=== PATIENT | female | born 1960 | race Caucasian/White ===

== ENCOUNTER 2018-02-25 15:37 | Inpatient (IN) | payer OTHER ==
--- NOTE | 2018-02-25 16:47 | ED ---
General Adult HPI - General Chief complaint: Neuro Symptoms/Deficit Stated complaint: POSS CVA Time Seen by Provider: 02/25/18 16:46 Source: patient, RN notes reviewed, old records reviewed Mode of arrival: wheelchair Limitations: no limitations - History of Present Illness Initial comments: This is a 37-year-old female to the ER for evaluation she presents today for evaluation rule out stroke. Patient was sent in by neurology Dr. Cagle for evaluation of stroke. Patient has been acting appropriate, has had 2 prior evaluations in the emergency room, coming in the ER for recurrent evaluation of continue binocular diplopia dizziness vertigo and ataxia - Related Data Home Medications Medication Instructions Recorded Confirmed Atenolol/Chlorthalidone 1 tab PO DAILY 02/25/18 02/25/18 [Atenolol-Chlorthalidone 50-25] Atorvastatin [Lipitor] 20 mg PO DAILY 02/25/18 02/25/18 Baclofen 10 mg PO HS 02/25/18 02/25/18 HYDROcodone/APAP 10-325MG [[place] 1 tab PO TID 02/25/18 02/25/18 10-325] Ibuprofen 600 mg PO TID 02/25/18 02/25/18 Levothyroxine Sodium 125 mcg PO DAILY 02/25/18 02/25/18 Loratadine [Claritin] 10 mg PO DAILY 02/25/18 02/25/18 Omeprazole 40 mg PO DAILY 02/25/18 02/25/18 Oxybutynin ER [Ditropan Xl] 10 mg PO DAILY 02/25/18 02/25/18 Temazepam [Restoril] 15 mg PO HS PRN 02/25/18 02/25/18 Allergies Allergy/AdvReac Type Severity Reaction Status Date / Time adhesive tape Allergy Unknown Verified 02/25/18 15:57 diflunisal [From Dolobid] Allergy Unknown Verified 02/25/18 15:57 Review of Systems ROS Statement: Those systems with pertinent positive or pertinent negative responses have been documented in the HPI. ROS Other: All systems not noted in ROS Statement are negative. Past Medical History Past Medical History: Fibromyalgia, Hyperlipidemia, Hypertension, Osteoarthritis (OA), Thyroid Disorder Additional Past Medical History / Comment(s): chronic back pain History of Any Multi-Drug Resistant Organisms: None Reported Past Surgical History: Appendectomy, Section, Cholecystectomy, Hernia Repair, Tonsillectomy Past Psychological History: No Psychological Hx Reported Smoking Status: Current every day smoker Past Alcohol Use History: None Reported Past Drug Use History: Marijuana General Exam - General Exam Comments Initial Comments: binocular diplopia Limitations: no limitations General appearance: alert, in no apparent distress Head exam: Present: atraumatic, normocephalic, normal inspection Eye exam: Present: normal appearance, PERRL, EOMI. Absent: scleral icterus, conjunctival injection, periorbital swelling ENT exam: Present: normal exam, mucous membranes moist Neck exam: Present: normal inspection. Absent: tenderness, meningismus, lymphadenopathy Respiratory exam: Present: normal lung sounds bilaterally. Absent: respiratory distress, wheezes, rales, rhonchi, stridor Cardiovascular Exam: Present: regular rate, normal rhythm, normal heart sounds. Absent: systolic murmur, diastolic murmur, rubs, gallop, clicks GI/Abdominal exam: Present: soft, normal bowel sounds. Absent: distended, tenderness, guarding, rebound, rigid Extremities exam: Present: normal inspection, full ROM, normal capillary refill. Absent: tenderness, pedal edema, joint swelling, calf tenderness Back exam: Present: normal inspection Neurological exam: Present: alert, oriented X3, CN II-XII intact Psychiatric exam: Present: normal affect, normal mood Skin exam: Present: warm, dry, intact, normal color. Absent: rash Course Vital Signs 02/25/18 02/25/18 02/25/18 15:52 17:04 18:10 Temperature 98.1 F Pulse Rate 62 63 58 L Respiratory 20 16 16 Rate Blood Pressure 107/72 134/68 102/56 O2 Sat by Pulse 96 98 98 Oximetry EKG Findings - EKG Comments: EKG Findings:: EKG shows no sinus rhythm rate of 61, RI 152, QRS 90, QTc 418 Medical Decision Making - Medical Decision Making 57 female the ER for evaluation of binocular diplopia. CT negative, will admit for neurological evaluation - Lab Data Result diagrams: 02/25/18 17:04 02/25/18 17:04 Lab Results 02/25/18 02/25/18 02/25/18 Range/Units 17:04 17:04 17:04 WBC 9.0 (3.8-10.6) k/uL RBC 4.93 (3.80-5.40) m/uL Hgb 15.0 (11.4-16.0) gm/dL Hct 43.4 (34.0-46.0) % MCV 88.1 (80.0-100.0) fL MCH 30.5 (25.0-35.0) pg MCHC 34.6 (31.0-37.0) g/dL RDW 13.1 (11.5-15.5) % Plt Count 298 (150-450) k/uL Neutrophils % 54 % Lymphocytes % 36 % Monocytes % 5 % Eosinophils % 2 % Basophils % 1 % Neutrophils # 4.8 (1.3-7.7) k/uL Lymphocytes # 3.3 (1.0-4.8) k/uL Monocytes # 0.5 (0-1.0) k/uL Eosinophils # 0.2 (0-0.7) k/uL Basophils # 0.1 (0-0.2) k/uL PT (9.0-12.0) sec INR (<1.2) APTT (22.0-30.0) sec Sodium 143 (137-145) mmol/L Potassium 3.5 (3.5-5.1) mmol/L Chloride 105 (98-107) mmol/L Carbon Dioxide 24 (22-30) mmol/L Anion Gap 14 mmol/L BUN 9 (7-17) mg/dL Creatinine 0.80 (0.52-1.04) mg/dL Est GFR (CKD-EPI)AfAm >90 (>60 ml/min/1.73 sqM) Est GFR (CKD-EPI)NonAf 84 (>60 ml/min/1.73 sqM) Glucose 102 H (74-99) mg/dL Calcium 9.7 (8.4-10.2) mg/dL Total Bilirubin 0.4 (0.2-1.3) mg/dL AST 23 (14-36) U/L ALT 12 (9-52) U/L Alkaline Phosphatase 65 (38-126) U/L Total Creatine Kinase 91 (30-135) U/L CK-MB (CK-2) 0.8 (0.0-2.4) ng/mL CK-MB (CK-2) Rel Index 0.9 Troponin I 0.056 H* (0.000-0.034) ng/mL Total Protein 7.1 (6.3-8.2) g/dL Albumin 4.3 (3.5-5.0) g/dL 02/25/18 Range/Units 17:04 WBC (3.8-10.6) k/uL RBC (3.80-5.40) m/uL Hgb (11.4-16.0) gm/dL Hct (34.0-46.0) % MCV (80.0-100.0) fL MCH (25.0-35.0) pg MCHC (31.0-37.0) g/dL RDW (11.5-15.5) % Plt Count (150-450) k/uL Neutrophils % % Lymphocytes % % Monocytes % % Eosinophils % % Basophils % % Neutrophils # (1.3-7.7) k/uL Lymphocytes # (1.0-4.8) k/uL Monocytes # (0-1.0) k/uL Eosinophils # (0-0.7) k/uL Basophils # (0-0.2) k/uL PT 10.0 (9.0-12.0) sec INR 1.0 (<1.2) APTT 23.5 (22.0-30.0) sec Sodium (137-145) mmol/L Potassium (3.5-5.1) mmol/L Chloride (98-107) mmol/L Carbon Dioxide (22-30) mmol/L Anion Gap mmol/L BUN (7-17) mg/dL Creatinine (0.52-1.04) mg/dL Est GFR (CKD-EPI)AfAm (>60 ml/min/1.73 sqM) Est GFR (CKD-EPI)NonAf (>60 ml/min/1.73 sqM) Glucose (74-99) mg/dL Calcium (8.4-10.2) mg/dL Total Bilirubin (0.2-1.3) mg/dL AST (14-36) U/L ALT (9-52) U/L Alkaline Phosphatase (38-126) U/L Total Creatine Kinase (30-135) U/L CK-MB (CK-2) (0.0-2.4) ng/mL CK-MB (CK-2) Rel Index Troponin I (0.000-0.034) ng/mL Total Protein (6.3-8.2) g/dL Albumin (3.5-5.0) g/dL - Radiology Data Radiology results: report reviewed (CT brain C-spine negative), image reviewed Disposition Clinical Impression: Cerebrovascular accident, Transient cerebral ischemia Disposition: ADMITTED IP TO THIS HOSP Condition: Fair Is patient prescribed a controlled substance at d/c from ED?: No Referrals: Loly Reed MD [Primary Care Provider] - 1-2 days
[2018-02-25] MEDS ORDERED: SODIUM CHLORIDE 0.9% 500 ML IV STA (16:54)
[2018-02-25] MEDS ORDERED: SODIUM CHLORIDE 0.9% 1,000 ML IV STA (16:54)
[2018-02-25 17:26] LABS: Basophils # (A) 0.1 k/uL (0-0.2); Basophils % (A) 1 %; Eosinophils # (A) 0.2 k/uL (0-0.7); Eosinophils % (A) 2 %; HCT 43.4 % (34.0-46.0); Lymphocytes # (A) 3.3 k/uL (1.0-4.8); Lymphocytes % (A) 36 %; MCH 30.5 pg (25.0-35.0); MCHC 34.6 g/dL (31.0-37.0); MCV 88.1 fL (80.0-100.0); Mean Platelet Volume 6.9; Monocytes # (A) 0.5 k/uL (0-1.0); Monocytes % (A) 5 %; Neutrophils # (A) 4.8 k/uL (1.3-7.7); Neutrophils % (A) 54 %; Platelet Count 298 k/uL (150-450); RBC 4.93 m/uL (3.80-5.40); RDW 13.1 % (11.5-15.5)
[2018-02-25 17:32] LABS: Partial Thromboplastin Time 23.5 sec (22.0-30.0)
[2018-02-25 17:34] LABS: ALT 12 U/L (9-52); AST 23 U/L (14-36); Albumin 4.3 g/dL (3.5-5.0); Alkaline Phosphatase 65 U/L (38-126); Anion Gap 14 mmol/L; Blood Urea Nitrogen 9 mg/dL (7-17); Calcium 9.7 mg/dL (8.4-10.2); Carbon Dioxide 24 mmol/L (22-30); Chloride 105 mmol/L (98-107); Glucose 102 mg/dL (74-99); Potassium 3.5 mmol/L (3.5-5.1); Sodium 143 mmol/L (137-145); Total Bilirubin 0.4 mg/dL (0.2-1.3); Total Protein 7.1 g/dL (6.3-8.2)
[2018-02-25 17:57] LABS: Creatine Kinase MB 0.8 ng/mL (0.0-2.4)
[2018-02-25] MEDS ORDERED: RX INFO: IV CONTRAST WAS GIVEN 1 EACH MISC MISCELLANE PRN (17:58)
[2018-02-25 18:01] LABS: Troponin I 0.056 ng/mL (0.000-0.034)
[2018-02-25] MEDS ORDERED: ASPIRIN 325 MG TAB PO STA (18:15)
--- NOTE | 2018-02-25 19:07 | CT ---
EXAMINATION TYPE: CT brain wo con DATE OF EXAM: 02/25/2018 HISTORY: Dizziness and blurred vision x4 days. CT DLP: 750.9 mGycm. Automated Exposure Control for Dose Reduction was Utilized. TECHNIQUE: CT scan of the head is performed without contrast. COMPARISON: None. FINDINGS: There is no acute intracranial hemorrhage or midline shift identified. The ventricles and sulci are normal in size. There is low-attenuation in the periventricular white matter consistent w ith chronic small vessel ischemic change. The globes are intact and the visualized sinuses are clear . Moderate calcified plaque supraclinoid segment distal internal carotid arteries is present. IMPRESSION: No acute intracranial hemorrhage or midline shift. There is suspected mild chronic smal l vessel ischemic change.
--- NOTE | 2018-02-25 19:30 | CT ---
EXAMINATION TYPE: CT angio head neck DATE OF EXAM: 02/25/2018 HISTORY: Dizziness and blurred vision x4 days. COMPARISON: NONE CT DLP: 266.9 mGycm. Automated Exposure Control for Dose Reduction was Utilized. TECHNIQUE: CTA scan of the head and neck are performed with IV Contrast, patient injected with 65ml mL of Isovue 370, axial images are obtained, coronal and sagittal reformatted images are reviewed. Th ree-D reconstructed images are created on an independent workstation and reviewed. FINDINGS: Carotid/Vascular Structures: There is moderate mixed plaque in the aortic arch. There is bovine type arch which is normal variant. There is no significant stenosis and subclavian arteries bilaterally. T he right common carotid artery shows normal origin from right brachiocephalic artery. There is modera te calcified plaque at right carotid bulb extending into proximal internal carotid artery without sig nificant stenosis identified, stenosis approaching 50% is felt present. Mild to moderate calcified pl aque supraclinoid segment distal right internal carotid artery is present. There is a patent external carotid artery without significant plaque or stenosis. There is moderate calcified plaque at left carotid bulb extending into the proximal internal carotid artery without significant stenosis. There is mild calcified plaque in supraclinoid segment distal le ft internal carotid artery. There is a patent left external carotid artery without significant plaque or stenosis. There is dominant right vertebral artery. There is tortuous course to distal vertebral arteries. Vert ebral arteries are patent to basilar junction. There a patent posterior to indicating arteries identi fied bilaterally. No significant focal stenosis or aneurysmal change is seen. Images of the anterior circulation show no significant focal stenosis or aneurysmal change. Patent an terior communicating artery is not well seen. Other: Mild underlying emphysematous change in the visualized lung apices is present. There is mild t o moderate spurring and disc space narrowing C5-C6 level. IMPRESSION: 1. Moderate atherosclerotic change bilateral carotid bulbs with stenosis approaching felt just under 50% in the right internal carotid artery. 2. No aneurysmal change at the level of the [place].
[2018-02-25] MEDS: HYDROcodone/APAP 10-325MG 1 EACH TAB PO PRN (23:52)
[2018-02-25] MEDS: BACLOFEN 10 MG TAB PO SCH (23:52)
[2018-02-25] MEDS: TEMAZEPAM 15 MG CAP PO PRN (23:52)
[2018-02-25] MEDS: IBUPROFEN 600 MG TAB PO PRN (23:53)
--- NOTE | 2018-02-25 23:53 | HP ---
HISTORY AND PHYSICAL CHIEF COMPLAINTS: Dizziness and possible CVA. HISTORY OF PRESENT ILLNESS: This 57-year-old woman with a past medical history of multiple medical problems, including fibromyalgia, hypertension, hyperlipidemia, DJD, history of appendectomy, section, cholecystectomy being followed by Dr. Reed in the outpatient setting was noted to have dizziness and some headache yesterday. The patient is seen by Dr. Sunshine Cagle. The possibility of stroke was considered. Patient came to [facility], was admitted for further evaluation and treatment. A CT brain was done in the ER which showed no acute intracranial process and a CT angio was also done which showed moderate atherosclerotic changes of bilateral carotids, but the stenosis was just under 50%. No aneurysmal changes, also. Of note, the patient's troponin was found to be 0.056 and admitted for further evaluation and treatment. The patient has extensive family history of coronary artery disease and some strokes also. The patient also had apparently familial hypercholesteremia as well. There is no history of any fever, rigors. No history of headache, loss of consciousness, seizures. Patient did have some chest pains also in the anterior part of chest, ache off and on, according to her. PAST MEDICAL HISTORY: History of hypertension, hyperlipidemia, DJD, hypothyroidism, chronic back pain, fibromyalgia. MEDICATIONS PRIOR TO ADMISSION: Include: 1. Omeprazole 40 mg daily. 2. Levothyroxine 125 mcg p.o. daily. 3. Lipitor 20 mg daily. 4. Atenolol/chlorthalidone 50/25 p.o. daily. 5. Restoril 50 mg q.h.s. 6. Xopenex 10 mg daily. 7. Claritin 10 mg daily. 8. Ibuprofen 600 mg p.o. t.i.d. 9. [place] 10 mg t.i.d. 10.Baclofen 10 mg q.h.s. ALLERGIES: ADHESIVE TAPES and DIFLUNISAL. FAMILY HISTORY: No history of heart disease, strokes in the family. SOCIAL HISTORY: History of smoking. History of THC. REVIEW OF SYSTEMS: ENT: Mentioned earlier. CARDIOVASCULAR: As mentioned earlier. RESPIRATORY: As mentioned earlier. GI: No nausea or vomiting. : No dysuria. NERVOUS: As mentioned earlier. ALLERGY/IMMUNOLOGY: No asthma or hay fever. MUSCULOSKELETAL: As mentioned earlier. HEMATOLOGY/ONCOLOGY: Negative. ENDOCRINE: No history of diabetes mellitus, hypothyroidism. CONSTITUTIONAL: As mentioned earlier. DERMATOLOGY: Negative. RHEUMATOLOGY: Negative. PSYCHIATRY: As mentioned earlier. PHYSICAL EXAMINATION: Alert and oriented x3. Pulse 58, blood pressure 102/56, respirations 16, temperature 98 degrees, pulse ox 98% on 2L. HEENT: Conjunctivae normal. Oral mucosa moist. NECK: No jugular venous distention. No carotid bruits. No lymph node enlargement. CARDIOVASCULAR: S1, S2 muffled. RESPIRATORY: Breath sounds diminished in the bases. A few scattered rhonchi. No crackles. ABDOMEN: Soft, nontender. No mass palpable. LEGS: No edema. No swelling. NERVOUS SYSTEM: Higher functions as mentioned earlier. Moves all 4 limbs. No focal motor or sensory deficits. LYMPHATIC: No lymphadenopathy in neck or axillae. SKIN: No ulcer, rash or bleeding. LABS: CBC within normal limits and glucose 102 and troponin 0.053. ASSESSMENT: 1. Dizziness and vertigo for possible acute transient ischemic attack. 2. Troponin 0.056, possible acute non ST elevation myocardial infarction. 3. History of nicotine dependence. 4. Extensive family history of coronary artery disease. 5. Fibromyalgia. 6. Hypertension. 7. Hyperlipidemia. 8. Degenerative joint disease. 9. Hypothyroidism. 10.Chronic back pain, degenerative joint disease. 11.Carotid stenosis under 50%. RECOMMENDATIONS AND DISCUSSION: In this 57-year-old woman who presented with multiple complex medical issues, will monitor the patient closely. Continue the current medical management and symptomatic treatment. Otherwise, I would recommend cardiology and neurology consultations, resume home medications. The patient is on antiplatelet agents and the patient is taking Lipitor at this time. Otherwise, we will continue to monitor. Guarded prognosis because of multiple complex medical issues. Further recommendations to follow. Repeat labs will be ordered as well. Repeat troponin is being requested. MMODL / IJN: [id number] /
[2018-02-25] MEDS: SODIUM CHLORIDE 0.9% 1,000 ML IV SCH (23:58)
[2018-02-26 00:33] VITALS: BMI 26.5
[2018-02-26] MEDS: SODIUM CHLORIDE 0.9% 1,000 ML IV SCH ×2 (06:19→16:11)
[2018-02-26] MEDS: LEVOTHYROXINE 125 MCG TAB PO SCH (06:19)
[2018-02-26 06:48] LABS: Basophils % (A) 1 %; Eosinophils # (A) 0.2 k/uL (0-0.7); Eosinophils % (A) 2 %; HCT 40.6 % (34.0-46.0); HGB 13.7 gm/dL (11.4-16.0); Lymphocytes # (A) 3.3 k/uL (1.0-4.8); Lymphocytes % (A) 41 %; MCH 29.7 pg (25.0-35.0); MCHC 33.6 g/dL (31.0-37.0); MCV 88.3 fL (80.0-100.0); Mean Platelet Volume 6.8; Monocytes # (A) 0.5 k/uL (0-1.0); Monocytes % (A) 6 %; Neutrophils # (A) 3.8 k/uL (1.3-7.7); Neutrophils % (A) 48 %; Platelet Count 267 k/uL (150-450); RDW 13.1 % (11.5-15.5)
[2018-02-26 06:59] LABS: Potassium 3.3 mmol/L (3.5-5.1)
[2018-02-26] MEDS ORDERED: Potassium Replacement Protocol 1 EACH MISC MISCELLANE PRN ×2 (08:20→21:04)
[2018-02-26] MEDS ORDERED: IBUPROFEN 600 MG TAB PO SCH (09:00)
[2018-02-26] MEDS ORDERED: HYDROcodone/APAP 10-325MG 1 EACH TAB PO SCH (09:00)
[2018-02-26] MEDS ORDERED: ATORVASTATIN 20 MG TAB PO SCH (09:00)
[2018-02-26] MEDS ORDERED: NON-FORMULARY DRUG (Atenolol/Chlorthalidone [Atenolol-Chlorthalidone 50-25] 1 TAB) PO SCH (09:00)
[2018-02-26] MEDS: OXYBUTYNIN 10 MG TAB.ER.24 PO SCH (10:14)
[2018-02-26] MEDS: LORATADINE 10 MG TAB PO SCH (10:15)
[2018-02-26] MEDS: POTASSIUM CHLORIDE ER 20 MEQ TAB.ER PO SCH ×3 (10:15→22:37)
[2018-02-26] MEDS: PANTOPRAZOLE 40 MG TABLET PO SCH (10:15)
[2018-02-26] MEDS: HYDROcodone/APAP 10-325MG 1 EACH TAB PO PRN ×3 (10:20→22:36)
[2018-02-26] MEDS: IBUPROFEN 600 MG TAB PO PRN ×3 (10:20→22:37)
--- NOTE | 2018-02-26 10:50 | ECHOF ---
Referral Reason:Thrombus MEASUREMENTS -------- HEIGHT: 160.0 cm WEIGHT: 67.6 kg BP: 111/66 IVSd: 1.3 cm (0.6 - 1.1) LVIDd: 3.3 cm (3.9 - 5.3) LVPWd: 1.3 cm (0.6 - 1.1) IVSs: 1.7 cm LVIDs: 2.5 cm LVPWs: 1.8 cm LAESV Index (A-L): 29.09 ml/m Ao Diam: 3.4 cm (2.0 - 3.7) AV Cusp: 1.8 cm (1.5 - 2.6) LA Diam: 3.0 cm (2.7 - 3.8) MV EXCURSION: 11.106 mm (> 18.000) MV EF SLOPE: 55 mm/s (70 - 150) EPSS: 0.8 cm MV E Isauro: 0.66 m/s MV DecT: 194 ms MV A Isa[place]: 0.91 m/s MV E/A Ratio: 0.73 RAP: 5.00 mmHg RVSP: 10.30 mmHg FINDINGS -------- Sinus rhythm. This was a technically good study. The left ventricular size is normal. There is mild concentric left ventricular hypertrophy. Overa ll left ventricular systolic function is normal with, an EF between 55 - 60 %. The right ventricle is normal in size and function. LA is midly dilated 29-33ml/m2. The right atrium is normal in size. The aortic valve is trileaflet, and appears structurally normal. No aortic stenosis or regurgitation. Mobile echogenic mass attached to the tip of the anterior mitral leaflet Mild tricuspid regurgitation present. The right ventricular systolic pressure, as measured by Doppl er, is 10.30mmHg. Pulmonic valve appears structurally normal. The aortic root size is normal. The pericardium is normal. CONCLUSIONS -------- 1. Sinus rhythm. 2. This was a technically good study. 3. The left ventricular size is normal. 4. There is mild concentric left ventricular hypertrophy. 5. Overall left ventricular systolic function is normal with, an EF between 55 - 60 %. 6. The right ventricle is normal in size and function. 7. LA is midly dilated 29-33ml/m2. 8. The right atrium is normal in size. 9. The aortic valve is trileaflet, and appears structurally normal. No aortic stenosis or regurgitati on. 10. Mobile echogenic mass attached to the tip of the anterior mitral leaflet 11. Mild tricuspid regurgitation present. 12. The right ventricular systolic pressure, as measured by Doppler, is 10.30mmHg. 13. Pulmonic valve appears structurally normal. 14. The aortic root size is normal. 15. The pericardium is normal. [employer] TIME CLERK: Tammy Israel RDCS
[2018-02-26] MEDS: CHLORTHALIDONE 25 MG TAB PO SCH (11:09)
[2018-02-26] MEDS: ATENOLOL 50 MG TAB PO SCH (11:09)
[2018-02-26] MEDS: ASPIRIN 325 MG TAB PO SCH (11:10)
--- NOTE | 2018-02-26 13:08 | CONS ---
CONSULTATION Mrs. Stephens is a 57-year-old female, who is seen for cardiac evaluation. This patient has a history of hypertension, hyperlipidemia, and fibromyalgia. The patient has been having dizziness and unsteadiness and headache for last couple of days. Patient was seen by Dr. Cagle and she was sent to the emergency room. CT of the brain was done which did not show any significant abnormality. CT angiogram showed moderate degree of atherosclerotic changes in both the carotid arteries but the stenosis was not greater than 50%. The patient denied any chest pain. There is extensive family history of coronary artery disease with also history of stroke. PAST MEDICAL HISTORY: Includes a history of hypertension, hyperlipidemia, degenerative joint disease. Hypothyroidism fibromyalgia. MEDICATIONS: The patient's home medications include Lipitor 20 mg daily, Synthroid, omeprazole, atenolol, chlorthalidone once a day, Claritin, [place] and baclofen. REVIEW OF THE SYSTEM: Otherwise unremarkable. PHYSICAL EXAMINATION: At present reveals a 57-year-old female, who does not appear to be in any acute distress. The patient's blood pressure is 102/56 mmHg. HEENT/NECK: Examination is negative. HEART: First and second heart sounds are normal. No murmurs are heard. Lungs are clinically clear to auscultation and percussion. ABDOMEN: Soft. Liver and spleen are not enlarged. Bowel sounds are heard. EXTREMITIES: Peripheral pulses are 2+. The patient's EKG is normal. Laboratory tests shows 3 troponins are identical 0.056, 0.056 and 0.056 and is not suggestive of acute coronary syndrome. The patient's cholesterol is 135, HDL is 39 and LDL is 66. Patient's echocardiogram reveals a normal left ventricular systolic function. There is a possible calcified mass attached to the tip of the anterior mitral leaflet. Exact nature of it is unclear. FINAL IMPRESSION: 1. This patient has been admitted with symptoms of dizziness and unsteadiness and headache, rule out TIA in the posterior cerebral circulation. Patient's CAT scan is normal. CT angiogram does not show any abnormality. We will get MRI of the brain. 2. The patient's three troponins are identical and it is not suggestive of acute coronary syndrome. However in view of the patient's family history as well as patient already has an established carotid artery disease, we will recommend the patient to be evaluated with a stress test as an outpatient. We will also recommend to evaluate the patient with transesophageal echocardiogram as an outpatient to evaluate the mitral valve leaflets and rule out any echogenic mass attached to the mitral leaflet. MMODL / IJN: [id number] /
[2018-02-26] MEDS: ATORVASTATIN 40 MG TAB PO SCH (14:25)
[2018-02-26 15:22] LABS: Appearance,Urine Clear (Clear); Bilirubin,Urine Negative (Negative); Blood,Urine Negative (Negative); Color,Urine Light Yellow; Glucose,Urine (UA) Negative (Negative); Ketones,Urine Negative (Negative); Leukocyte Esterase,Urine Trace (Negative); Nitrite,Urine Negative (Negative); Protein,Urine Negative (Negative); RBC,Urine 1 /hpf (0-5); Specific Gravity,Urine 1.011 (1.001-1.035); Squamous Epithelial Cell,Urine 3 /hpf (0-4); Urobilinogen,Urine <2.0 mg/dL (<2.0); WBC,Urine 1 /hpf (0-5)
[2018-02-26] MEDS ORDERED: LORazepam 2 MG/ML INJ IV STA (15:31)
--- NOTE | 2018-02-26 18:21 | PN ---
PROGRESS NOTE DATE OF SERVICE: 02/26/2018 This 57-year-old woman who was admitted with dizziness and vertigo, also had elevated troponin. The patient was seen by Cardiology. Neurology evaluation in progress at this time. The cardiology has seen the patient and recommended MRI of the brain and also stress test as an outpatient. No chest pain. No palpitations. No fever. EXAM: Alert and oriented x3. The pulse is 61, blood pressure 109/79, respiration 18, temperature 98.2, pulse ox 98% on room air. Skin is normal. Neck: No jugular venous distention. Cardiovascular: S1, S2 muffled. Respiratory: Breath sounds diminished in the bases. No rhonchi. No crackles. Abdomen is soft, nontender. Legs are no edema. No swelling. Central nervous system. No focal deficits. LABS: Troponin 0.56 which is stable. Potassium 3.3. ASSESSMENT: 1. Dizziness, vertigo with possible acute transient ischemic attack. 2. Troponin 0.056, rule out acute non-ST elevation myocardial infarction, troponin stable without no dynamic change. 3. History of nicotine dependence. 4. Extensive family history of coronary artery disease. 5. Fibromyalgia. 6. Hypertension. 7. Hyperlipidemia. 8. Degenerative joint disease. 9. Hypothyroidism. 10.History of chronic back pain, degenerative joint disease. 11.History of carotid stenosis 150%. RECOMMENDATIONS AND DISCUSSION: Recommend to continue current medications, management and symptomatic treatment. Otherwise, MRI of the brain has been ordered. Closely with Cardiology and Neurology. Guarded prognosis because of multiple complex medical issues. Further recommendations to follow. MMODL / IJN: [id number] /
--- NOTE | 2018-02-26 18:28 | MR ---
EXAMINATION TYPE: MR brain wo/w con DATE OF EXAM: 02/26/2018 COMPARISON: NONE HISTORY: Blurred/loss of vision, abnormal gait, veers to the right TECHNIQUE: Multiplanar, multisequence images of the brain and brainstem is performed without and with IV contras t, utilizing 7 mL intravenous Gadavist . FINDINGS: There is a 7 mm focus of increased signal on the FLAIR and T2 images in the medial aspect o f the left cerebral peduncle at the posterior aspect of the third ventricle. There are few scattered foci of increased signal in the white matter of both cerebral hemispheres at the [place]-white matter ju nction. The total numbers less than 10 and these measure up to 5 mm. There is no midline shift. There is no sign of intracranial hemorrhage. I see no evidence of a cortical infarct. There are 3 mm foci of increased signal in the lower dione bilaterally. I see no pathologic enhancement. There is no evide nce of orbital mass. There is minor mucosal thickening in the left side of the ethmoid sinus. IMPRESSION: Scattered white matter foci as above are nonspecific and could relate to chronic small ve ssel ischemia and I think less likely demyelinating disease. No evidence of cortical infarct. Minimal left-sided ethmoid sinusitis.
--- NOTE | 2018-02-26 19:09 | P.CONS ---
History of Present Illness - Reason for Consult Consult date: 02/26/18 Dizziness and visual disturbances - Chief Complaint Visual disturbances - History of Present Illness Is a 57-year-old female being evaluated for the above stated problems. She was sent to the [facility] emergency room by Dr. Bran Cagle after being seen in the office in giving symptoms consistent with a possible CVA. She states that since early on in the week she developed a acute onset of double and blurred vision. She feels strongly that her dizziness is associated with these vision problems. Her visual symptoms are still present but much less severe. A CT and CTA were done in the emergency room there was no acute process noted. However, she does have atherosclerotic changes in bilateral carotid arteries under 50%. She did have some elevated but stable troponin for which she was evaluated by cardiology. They have recommended outpatient testing. Her labs revealed a triglycerides of 148 a cholesterol of 135 and LDL of 66 and HDL of 39 she was started on aspirin 3 her 25 mg and Lipitor 40 mg. Her MRI of the brain showed no acute intracranial abnormalities but did show white matter changes which may be consistent with demyelination. At the time my exam she is resting comfortably in bed in no acute distress. Review of Systems Constitutional: Reports as per HPI Past Medical History Past Medical History: Fibromyalgia, Hyperlipidemia, Hypertension, Liver Disease , Memory Impairment, Osteoarthritis (OA), Thyroid Disorder Additional Past Medical History / Comment(s): chronic back pain, pinched nerve in her back, lumbar fracture 2003, sinusitis, nose broken several times, deviated septum, hepatitis c with treatment History of Any Multi-Drug Resistant Organisms: None Reported Past Surgical History: Appendectomy, Section, Cholecystectomy, Hernia Repair, Tonsillectomy Additional Past Surgical History / Comment(s): pt. had had 3 hernia sugeries, oral surgery Past Anesthesia/Blood Transfusion Reactions: No Reported Reaction Past Psychological History: Anxiety, Depression Smoking Status: Current every day smoker Past Alcohol Use History: None Reported Past Drug Use History: Marijuana - Past Family History Father Family Medical History: Liver Disease, Myocardial Infarction (MA) Additional Family Medical History / Comment(s): pts. father at age 45 from an MA, per pt. he was an alcoholic Mother Family Medical History: Coronary Artery Disease (CAD), Diabetes Mellitus, Myocardial Infarction (MA) Medications and Allergies Home Medications Medication Instructions Recorded Confirmed Type Atenolol/Chlorthalidone 1 tab PO DAILY 02/25/18 02/25/18 History [Atenolol-Chlorthalidone 50-25] Atorvastatin [Lipitor] 20 mg PO DAILY 02/25/18 02/25/18 History Baclofen 10 mg PO HS 02/25/18 02/25/18 History HYDROcodone/APAP 10-325MG [[place] 1 tab PO TID 02/25/18 02/25/18 History 10-325] Ibuprofen 600 mg PO TID 02/25/18 02/25/18 History Levothyroxine Sodium 125 mcg PO DAILY 02/25/18 02/25/18 History Loratadine [Claritin] 10 mg PO DAILY 02/25/18 02/25/18 History Omeprazole 40 mg PO DAILY 02/25/18 02/25/18 History Oxybutynin ER [Ditropan Xl] 10 mg PO DAILY 02/25/18 02/25/18 History Temazepam [Restoril] 15 mg PO HS PRN 02/25/18 02/25/18 History Allergies Allergy/AdvReac Type Severity Reaction Status Date / Time adhesive tape Allergy Unknown Verified 02/25/18 15:57 diflunisal [From Dolobid] Allergy Unknown Verified 02/25/18 15:57 Physical Exam Vitals: Vital Signs Temp Pulse Resp BP Pulse Ox 02/26/18 16:00 97.9 F 56 L 16 142/76 98 02/26/18 12:00 98 F 56 L 16 168/91 99 02/26/18 08:50 98.1 F 61 18 109/79 98 02/26/18 08:00 18 02/26/18 04:05 98.0 F 58 L 17 111/66 97 02/26/18 00:25 98.5 F 51 L 18 124/70 96 02/25/18 20:20 56 L 18 02/25/18 19:43 98.6 F 56 L 18 129/75 97 Intake and Output 02/26/18 02/26/18 02/26/18 06:59 14:59 22:59 Intake Total 360 236 Balance 360 236 Intake: Oral 360 236 Other: Voiding Method Toilet Toilet # Voids 1 2 Weight 67.8 kg - Constitutional General appearance: average body habitus, cooperative, no acute distress - EENT Eyes: no abnormal pupil, EOMI, PERRLA, no ptosis ENT: hearing grossly normal - Neck Neck: normal ROM, no rigidity - Respiratory Respiratory: negative: prolonged expiration, prolonged inspiration - Cardiovascular Rhythm: regular - Gastrointestinal General gastrointestinal: no distended, no tenderness - Neurologic The patient is alert awake and oriented 3. Speech and language are normal. There is no facial asymmetry. Strength is 5 out of 5 in bilateral upper and lower extremities. There is no sensory deficit. No tremors or seizures are seen. Cranial nerves II through XII are intact globally. Results CBC & Chem 7: 02/26/18 06:27 02/26/18 06:27 Labs: Abnormal Lab Results - Last 24 Hours (Table) 02/25/18 02/25/18 02/26/18 Range/Units 15:18 22:27 06:27 Potassium 3.3 L (3.5-5.1) mmol/L Glucose 108 H (74-99) mg/dL Troponin I 0.056 H* (0.000-0.034) ng/mL HDL Cholesterol 39 L (40-60) mg/dL Ur Leukocyte Esterase Trace H (Negative) 02/26/18 Range/Units 06:27 Potassium (3.5-5.1) mmol/L Glucose (74-99) mg/dL Troponin I 0.056 H* (0.000-0.034) ng/mL HDL Cholesterol (40-60) mg/dL Ur Leukocyte Esterase (Negative) Assessment and Plan (1) Diplopia Current Visit: Yes Status: Acute Code(s): H53.2 - DIPLOPIA SNOMED Code(s) : 05579204 (2) Dizziness Current Visit: Yes Status: Acute Code(s): R42 - DIZZINESS AND GIDDINESS SNOMED Code(s): 021766111 (3) Hyperlipidemia Current Visit: Yes Status: Chronic Code(s): E78.5 - HYPERLIPIDEMIA, UNSPECIFIED SNOMED Code(s): 17871621 (4) White matter changes Current Visit: Yes Status: Chronic Code(s): DJY8291 - SNOMED Code(s): 770559794 Plan: The patient's symptoms are not consistent with a transient episode of cerebral ischemia and her MRI does not support a diagnosis of CVA. Her symptom of diplopia and blurred vision are more likely an initial presentation of a demyelinating process like MS. Her MRI changes are consistent with this diagnosis. We discussed the options of initiating IV steroid treatment. She declines and would like to follow up with Dr. Cagle in outpatient setting. I do recommend this sooner rather than later. We discussed the likely need for a lumbar puncture for spinal fluid analysis. She is adamant that she will never have that done. I also recommend ophthalmology consultation, which could also be done in outpatient setting if needed. Due to her significant family history it would be prudent for her to stay on aspirin and Lipitor. Follow up with cardiology as planned. I have performed a history and physical on the above patient. I have reviewed the above note, and agree.
[2018-02-26] MEDS: TEMAZEPAM 15 MG CAP PO PRN (22:36)
[2018-02-26] MEDS: BACLOFEN 10 MG TAB PO SCH (22:41)
[2018-02-27 01:24] VITALS: RESP 18
[2018-02-27 06:28] LABS: Basophils # (A) 0.1 k/uL (0-0.2); Basophils % (A) 1 %; Eosinophils # (A) 0.2 k/uL (0-0.7); Eosinophils % (A) 3 %; HCT 41.5 % (34.0-46.0); HGB 14.2 gm/dL (11.4-16.0); Lymphocytes # (A) 3.7 k/uL (1.0-4.8); Lymphocytes % (A) 51 %; MCH 30.2 pg (25.0-35.0); MCHC 34.3 g/dL (31.0-37.0); MCV 88.3 fL (80.0-100.0); Monocytes # (A) 0.4 k/uL (0-1.0); Monocytes % (A) 6 %; Neutrophils # (A) 2.8 k/uL (1.3-7.7); Neutrophils % (A) 38 %; Platelet Count 262 k/uL (150-450); RDW 13.1 % (11.5-15.5); WBC 7.2 k/uL (3.8-10.6)
[2018-02-27 06:37] LABS: Anion Gap 12 mmol/L; Blood Urea Nitrogen 13 mg/dL (7-17); Calcium 9.7 mg/dL (8.4-10.2); Carbon Dioxide 24 mmol/L (22-30); Chloride 105 mmol/L (98-107); Glucose 118 mg/dL (74-99); Potassium 3.9 mmol/L (3.5-5.1); Sodium 141 mmol/L (137-145)
[2018-02-27] MEDS: POTASSIUM CHLORIDE ER 20 MEQ TAB.ER PO SCH (06:51)
[2018-02-27] MEDS: SODIUM CHLORIDE 0.9% 1,000 ML IV SCH ×2 (06:52→08:11)
[2018-02-27] MEDS: LEVOTHYROXINE 125 MCG TAB PO SCH (06:52)
[2018-02-27] MEDS: PANTOPRAZOLE 40 MG TABLET PO SCH (08:11)
[2018-02-27] MEDS: LORATADINE 10 MG TAB PO SCH (08:11)
[2018-02-27] MEDS: OXYBUTYNIN 10 MG TAB.ER.24 PO SCH (08:11)
[2018-02-27] MEDS: CHLORTHALIDONE 25 MG TAB PO SCH (08:11)
[2018-02-27] MEDS: ATENOLOL 50 MG TAB PO SCH (08:11)
[2018-02-27] MEDS: ATORVASTATIN 40 MG TAB PO SCH (08:11)
[2018-02-27] MEDS: ASPIRIN 325 MG TAB PO SCH (08:11)
[2018-02-27] MEDS: IBUPROFEN 600 MG TAB PO PRN (08:20)
[2018-02-27] MEDS: HYDROcodone/APAP 10-325MG 1 EACH TAB PO PRN (08:21)
[2018-02-27 11:39] VITALS: BP 170/87; PULSE 65; TEMP 97.9
--- NOTE | 2018-02-27 13:24 | P.PN ---
Subjective Progress Note Date: 02/27/18 This is a 57-year-old female who has history of hypertension, hyperlipidemia, fibromyalgia, was advised to come to the hospital by her neurologist because of symptoms of dizziness and unsteadiness with associated headache and visual disturbance. CT of the brain was done which did not show any significant abnormality. CT angiogram showed moderate degree of atherosclerotic changes in both carotid arteries but the stenosis was not greater than 50%. Patient denied any chest pain, she does have extensive family history of coronary artery disease as well as history of stroke. Patient was seen in consultation by Dr. VC Morales. An echocardiogram with Doppler study was performed which revealed a normal left ventricular systolic function. A mobile echogenic mass was attached to the tip of the anterior mitral leaflet on echo. Objective - Vital Signs Vital signs: Vital Signs Temp 97.9 F 02/27/18 11:37 Pulse 65 02/27/18 11:37 Resp 18 02/27/18 11:37 BP 170/87 02/27/18 11:37 Pulse Ox 98 02/27/18 11:37 Intake & Output 02/26/18 02/27/18 02/27/18 18:59 06:59 18:59 Intake Total 596 910 240 Balance 596 910 240 Weight 67.6 kg Intake: IV 10 0.9 10 Intake, IV Titration 900 Amount Sodium Chloride 0.9% 1, 900 000 ml @ 100 mls/hr IV . Q10H ITZEL Rx#:[id number] Oral 596 240 Other: Voiding Method Toilet Toilet # Voids 2 3 - Exam PHYSICAL EXAMINATION: HEENT: Head is atraumatic, normocephalic. Pupils equal, round. Continues to have mild blurred vision Neck is supple. There is no elevated jugular venous pressure. HEART EXAMINATION: Heart S1, S2 normal. No murmur or gallop heard. CHEST EXAMINATION: Lungs are clear to auscultation and precussion. No chest wall tenderness is noted on palpation or with deep breathing. ABDOMEN: Soft, nontender. Bowel sounds are heard. No organomegaly noted. EXTREMITIES: 2+ peripheral pulses with no evidence of peripheral edema and no calf tenderness noted. NEUROLOGIC patient is awake, alert and oriented -3. . - Labs CBC & Chem 7: 02/27/18 05:59 02/27/18 05:59 Labs: Abnormal Lab Results - Last 24 Hours (Table) 02/25/18 02/27/18 Range/Units 15:18 05:59 Glucose 118 H (74-99) mg/dL Ur Leukocyte Esterase Trace H (Negative) Assessment and Plan Plan: Assessment and plan #1 Dizziness and vertigo, no evidence of CVA #2 mild troponin abnormality, not consistent with acute coronary syndrome. LV function normal by echo. Mobile echogenic mass noted at the tip of the anterior mitral leaflet. Plan Cardiology's perspective, patient may be able to be discharged home today. We' ll make her a follow-up appointment in the office with Dr. VC Morales. She will also be scheduled for a GLORIA as an outpatient next week. DNP note has been reviewed, I agree with a documented findings and plan of care. Patient was seen and examined.
--- NOTE | 2018-02-27 21:49 | DS ---
DISCHARGE SUMMARY DATE OF SERVICE: 02/27/2018. FINAL DIAGNOSES: 1. Dizziness, vertigo with possible acute transient ischemic attack. The troponin 0.056 without any dynamic changes acute myocardial infarction unlikely per Cardiology. 2. Rule out coronary artery disease. 3. History of nicotine dependence. 4. Extensive family history of coronary artery disease. 5. Fibromyalgia. 6. Hypertension. 7. Hyperlipidemia. 8. Degenerative joint disease. 9. Hypothyroidism. 10.History of chronic back pain and degenerative joint disease. 11.History of carotid stenosis less than 50%. DISCHARGE DISPOSITION: The patient is being discharged in stable condition with guarded prognosis. HISTORY OF PRESENT ILLNESS: This 57-year-old woman with a past medical history of multiple medical problems, was admitted with dizziness and vertigo and multiple other medical problems. Patient was seen by Dr. Bran Cagle in the outpatient setting with possible TIA also suspected. Troponin is also elevated but there was no dynamic change. Acute CT unlikely per Cardiology. Please refer to Cardiology and neuro notes for further information. Treated symptomatically. Patient improved significantly. PHYSICAL EXAMINATION: On exam vitals are stable. Cardiovascular: S1, S2 normal. Abdomen soft. Nervous system: No focal deficits. DISCHARGE ADVICE AND MEDICATIONS: 1. Diet is cardiac. 2. Activity limited until follow up. 3. Follow up with Dr. Reed in 1-2 days. 4. Follow up with Mack Morales as advised. 5. Follow up with Neurologist as advised. MEDICATIONS: 1. Ecotrin 81 mg p.o. daily. 2. Atenolol chlorthalidone 1 tab p.o. daily. 3. Lipitor 20 mg. 4. Baclofen 10 mg p.o. q.h.s. 5. [place] 10 mg p.o. t.i.d. 6. Ibuprofen 600 mg p.o. t.i.d. 7. Levothyroxine 125 mcg p.o. daily. 8. Claritin 10 mg p.o. 9. Omeprazole 40 mg p.o. daily. 10.Ditropan XL 10 mg p.o. daily. 11.Restoril 50 mg q.h.s. p.r.n. Once again the patient is being discharged in stable condition with guarded prognosis. MMODL / IJN: [id number] /
== END 2018-02-27 13:38 | disposition home or self-care (01) | DRG 69 ==
LOC: EC 15:37 → 6SEL 18:19
PROVIDERS: ADMIT Hospitalist; ATTEND Hospitalist
DX: G45.9 Transient cerebral ischemic attack, unspecified (principal); I65.23 Occlusion and stenosis of bilateral carotid arteries; E78.01 Familial hypercholesterolemia; E78.5 Hyperlipidemia, unspecified; I10 Essential (primary) hypertension; E03.9 Hypothyroidism, unspecified; G89.29 Other chronic pain; M19.91 Primary osteoarthritis, unspecified site; M54.9 Dorsalgia, unspecified; M79.7 Fibromyalgia; R40.2362 Coma scale, best motor response, obeys commands, at arrival to emergency department; R40.2142 Coma scale, eyes open, spontaneous, at arrival to emergency department; R40.2252 Coma scale, best verbal response, oriented, at arrival to emergency department; F17.200 Nicotine dependence, unspecified, uncomplicated; Z79.1 Long term (current) use of non-steroidal anti-inflammatories (NSAID); Z79.890 Hormone replacement therapy; Z79.891 Long term (current) use of opiate analgesic; Z79.899 Other long term (current) drug therapy; Z87.81 Personal history of (healed) traumatic fracture; Z86.59 Personal history of other mental and behavioral disorders; Z86.19 Personal history of other infectious and parasitic diseases; Z90.49 Acquired absence of other specified parts of digestive tract; Z88.8 Allergy status to other drugs, medicaments and biological substances; Z91.048 Other nonmedicinal substance allergy status; Z82.49 Family history of ischemic heart disease and other diseases of the circulatory system; Z82.3 Family history of stroke; Z83.3 Family history of diabetes mellitus; Z81.1 Family history of alcohol abuse and dependence
CPT/HCPCS: 36415; 70450; 70496; 70498; 70553; 80048; 80053; 80061; 81001; 82550; 82553; 84484; 85025; 85610; 85730; 93005; 93306; 94760

== ENCOUNTER 2023-09-26 15:07 | Emergency (ER) | payer OTHER ==
[2023-09-26 15:25] VITALS: RESP 18
[2023-09-26] MEDS ORDERED: SODIUM CHLORIDE 0.9% 1,000 ML IV STA (15:31)
[2023-09-26] MEDS ORDERED: HYDROmorphone 1 MG/ML 1 ML SYRINGE IVP STA (15:31)
[2023-09-26] MEDS ORDERED: ORPHENADRINE 30 MG/ML 2 ML VIAL IVP STA (15:32)
[2023-09-26] MEDS ORDERED: DEXAMETHASONE SOD PHOSPHATE 10 MG/ML 1 ML VIAL IVP STA (15:32)
--- NOTE | 2023-09-26 15:41 | ED ---
Back Pain HPI - General Chief Complaint: Back Pain/Injury Stated Complaint: Dizzy/back pain Time Seen by Provider: 09/26/23 15:23 Source: patient, RN notes reviewed Mode of arrival: EMS Limitations: no limitations - History of Present Illness Initial Comments: This is a 63-year-old female who presents to the emergency department for back pain, dizziness, and chest pain. States that she has had back pain for several months, and she saw her primary care provider 5 days ago, who ordered an x-ray demonstrating an L1 compression fracture. Unsure how she may have injured this. The pain is starting to radiate down both legs. Denies any loss of bowel/bladder control or saddle anesthesia. She takes Exchange 10mg three times daily, which is not effectively managing her pain and she has an allergy to NSAIDs. Additionally, yesterday states that she had a stabbing pain in the center of her chest that lasted for a couple of seconds and then resolved. Reports ongoing shortness of breath, however this is not any worse than normal. Also states that she had been increasingly dizzy and fatigued over the last 2-3 days and just wants to sleep. MD Complaint: back pain - Related Data Home Medications Medication Instructions Recorded Confirmed Atenolol/Chlorthalidone 1 tab PO DAILY 02/25/18 02/25/18 [Atenolol/Chlorthalidone 50-25] Atorvastatin [Lipitor] 20 mg PO DAILY 02/25/18 02/25/18 Baclofen 10 mg PO HS 02/25/18 02/25/18 HYDROcodone/APAP 10-325MG [Exchange 1 tab PO TID 02/25/18 02/25/18 10-325] Ibuprofen 600 mg PO TID 02/25/18 02/25/18 Levothyroxine Sodium 125 mcg PO DAILY 02/25/18 02/25/18 Loratadine [Claritin] 10 mg PO DAILY 02/25/18 02/25/18 Omeprazole 40 mg PO DAILY 02/25/18 02/25/18 Oxybutynin ER [Ditropan XL] 10 mg PO DAILY 02/25/18 02/25/18 Temazepam [Restoril] 15 mg PO HS PRN 02/25/18 02/25/18 Previous Rx's Medication Instructions Recorded Aspirin EC [Ecotrin Low Dose] 81 mg PO DAILY #30 tablet. 02/27/18 Lidocaine 5% Patch [Lidoderm 5% 1 patch TOPICAL DAILY PRN #30 patch 09/26/23 Patch] methocarbamoL [Robaxin-750] 1,500 mg PO TID PRN #30 tab 09/26/23 predniSONE 50 mg PO DAILY 5 Days #5 tab 09/26/23 Allergies Allergy/AdvReac Type Severity Reaction Status Date / Time adhesive tape Allergy Unknown Verified 09/26/23 15:16 diflunisal [From Dolobid] Allergy Unknown Verified 09/26/23 15:16 Review of Systems ROS Statement: Those systems with pertinent positive or pertinent negative responses have been documented in the HPI. ROS Other: All systems not noted in ROS Statement are negative. Past Medical History Past Medical History: Fibromyalgia, Hyperlipidemia, Hypertension, Liver Disease, Memory Impairment, Osteoarthritis (OA), Thyroid Disorder Additional Past Medical History / Comment(s): chronic back pain, pinched nerve in her back, lumbar fracture 2003, sinusitis, nose broken several times, deviated septum, hepatitis c with treatment, L1 compression fracture, History of Any Multi-Drug Resistant Organisms: None Reported Past Surgical History: Appendectomy, Section, Cholecystectomy, Hernia Repair, Tonsillectomy Additional Past Surgical History / Comment(s): pt. had had 3 hernia sugeries, oral surgery Past Anesthesia/Blood Transfusion Reactions: No Reported Reaction Past Psychological History: Anxiety, Depression Smoking Status: Current every day smoker Past Alcohol Use History: None Reported Past Drug Use History: Marijuana - Past Family History Father Family Medical History: Liver Disease, Myocardial Infarction (LA) Additional Family Medical History / Comment(s): pts. father at age 45 from an [place], per pt. he was an alcoholic Mother Family Medical History: Coronary Artery Disease (CAD), Diabetes Mellitus, Myocardial Infarction (LA) General Exam Limitations: no limitations General appearance: alert, in distress Head exam: Present: atraumatic, normocephalic, normal inspection Respiratory exam: Present: normal lung sounds bilaterally. Absent: respiratory distress, wheezes, rales, rhonchi, stridor Cardiovascular Exam: Present: regular rate, normal rhythm, normal heart sounds. Absent: systolic murmur, diastolic murmur, rubs, gallop, clicks GI/Abdominal exam: Present: soft, normal bowel sounds. Absent: distended, tenderness, guarding, rebound, rigid Neurological exam: Present: alert, oriented X3, CN II-XII intact Psychiatric exam: Present: normal affect, normal mood Skin exam: Present: warm, dry, intact, normal color. Absent: rash Course Vital Signs 09/26/23 09/26/23 15:13 17:40 Temperature 97.3 F L 97.8 F Pulse Rate 78 68 Respiratory 18 18 Rate Blood Pressure 153/119 146/102 O2 Sat by Pulse 96 95 Oximetry Medical Decision Making - Medical Decision Making This is a 63 year old female who presents to the emergency department for low back pain, chest pain, and dizziness. Was pt. sent in by a medical professional or institution? @ -No Did you speak to anyone other than the patient for history? @ -No Did you review nursing and triage notes? @ -Yes, and I agree, it is accurate with regards to the patient's symptoms. Were old charts reviewed? @ -No Differential Diagnosis? @ -Differential Back Pain: Strain, zoster, cauda equina syndrome, epidural abscess, vertebral osteomyelitis, discitis, fracture, subluxation, disc herniation, DJD, spinal stenosis, dissection, AAA, pancreatitis, peptic ulcer disease, pyelonephritis, kidney stone, this is not meant to be an all-inclusive list. EKG interpreted by me (3pts min.)? @ -EKG interpreted by me demonstrating the following: Sinus rhythm. Ventricular rate 65 beats per minute, WI interval 157 ms, QRS duration 102 ms, QTc 415 milliseconds. X-rays interpreted by me (1pt min.)? @ -Chest x-ray obtained, my interpretation identifies no localized consolidations or infiltrates. CT interpreted by me (1pt min.)? @ -Computed tomography scan of the lumbar spine obtained. My interpretation identifies an L1 compression fracture. U/S interpreted by me (1pt. min.)? @ -Not obtained What testing was considered but not performed? (CT, X-rays, U/S, labs)? Why? @ -None What meds were considered but not given? Why? @ -None Did you discuss the management of the patient with other professionals? @ -No Did you reconcile home meds? @ -No Was smoking cessation discussed for >3mins.? @ -No Was critical care preformed (if so, how long)? @ -No Were there social determinants of health that impacted care today? How? (Homelessness, low income, unemployed, alcoholism, drug addiction, transportation, low edu. Level, literacy, decrease access to med. care, halfway, rehab)? @ -No Was there de-escalation of care discussed even if they declined? (Discuss DNR or withdrawal of care, Hospice)? @ -No What co-morbidities impacted this encounter? (DM, HTN, Smoking, COPD, CAD, Cancer, CVA, Hep., AIDS, mental health diagnosis, sleep apnea, morbid obesity)? @ -Fibromyalgia, osteoarthritis, HTN, HLD Was patient admitted / discharged? @ -Discharged. Lab work obtained and found to be unremarkable. Covid, influenza, and RSV testing were negative. Chest x-ray demonstrates borderline cardiomegaly without other findings suggestive of CHF. Computed tomography scan of the lumbar spine obtained revealing a moderate to severe endplate compression fracture of L1 with retropulsion compromising approximately 30% of the spinal canal. There is also a probable chronic mild superior endplate compression fracture of T11 without retropulsion. She also has multilevel degenerative changes. Findings reviewed with the patient. It is unclear when the L1 compression fracture was sustained. Given that she has had back pain for several months it is most likely an older injury. Discussed with the patient that because she is already on Exchange 10mg TID, her pain will be harder to control. Her symptoms were well controlled in the emergency department with IV fluids, Dilauded, Decadron, Norflex, and a lidocaine patch. Patient has an allergy to NSAIDs and those were avoided. Prescription for prednisone, Robaxin, and lidocaine patches provided with dosing instructions reviewed. She was also given information for orthopedic follow-up. Advised she contact them first thing Thursday morning for a follow-up appointment. Patient discharged home in stable condition. Undiagnosed new problem with uncertain prognosis? @ -None Drug Therapy requiring intensive monitoring for toxicity (Heparin, Nitro, Insulin, Cardizem)? @ -None Were any procedures done? @ -None Diagnosis/symptom? @ -L1 compression fracture, dizziness Acute, or Chronic, or Acute on Chronic? @ -Acute Uncomplicated (without systemic symptoms) or Complicated (systemic symptoms)? @ -Uncomplicated Side effects of treatment? @ -None Exacerbation, Progression, or Severe Exacerbation] @ -Not applicable Poses a threat to life or bodily function? @ -The pain may have an impact on her ability to function. Return precautions reviewed in depth, the patient is instructed to return to the emergency department with any new, worsening, or concerning symptoms. Patient verbalized understanding. This case was discussed in detail with the attending ED physician, Dr. Dennison. Presentation, findings, and treatment plan discussed in detail as well. - Lab Data Result diagrams: 09/26/23 15:55 09/26/23 15:55 Lab Results 09/26/23 09/26/23 09/26/23 Range/Units 15:55 15:55 15:55 WBC 9.8 (3.8-10.6) k/uL RBC 4.83 (3.80-5.40) m/uL Hgb 15.4 (11.4-16.0) gm/dL Hct 45.8 (34.0-46.0) % MCV 94.9 (80.0-100.0) fL MCH 31.9 (25.0-35.0) pg MCHC 33.6 (31.0-37.0) g/dL RDW 12.8 (11.5-15.5) % Plt Count 266 (150-450) k/uL MPV 7.3 Neutrophils % 68 % Lymphocytes % 23 % Monocytes % 5 % Eosinophils % 1 % Basophils % 1 % Neutrophils # 6.6 (1.3-7.7) k/uL Lymphocytes # 2.3 (1.0-4.8) k/uL Monocytes # 0.5 (0-1.0) k/uL Eosinophils # 0.1 (0-0.7) k/uL Basophils # 0.1 (0-0.2) k/uL PT 10.7 (10.0-12.5) sec INR 1.0 (<1.2) APTT 24.2 (22.0-30.0) sec Sodium 139 (137-145) mmol/L Potassium 4.5 (3.5-5.1) mmol/L Chloride 104 (98-107) mmol/L Carbon Dioxide 25 (22-30) mmol/L Anion Gap 10 mmol/L BUN 9 (7-17) mg/dL Creatinine 0.64 (0.52-1.04) mg/dL Est GFR (CKD-EPI)AfAm >90 (>60 ml/min/1.73 sqM) Est GFR (CKD-EPI)NonAf >90 (>60 ml/min/1.73 sqM) Glucose 94 (74-99) mg/dL Calcium 9.9 (8.4-10.2) mg/dL Magnesium 1.8 (1.6-2.3) mg/dL Total Bilirubin 0.5 (0.2-1.3) mg/dL AST 27 (14-36) U/L ALT 22 (4-34) U/L Alkaline Phosphatase 76 (38-126) U/L Troponin I (0.000-0.034) ng/mL Total Protein 7.3 (6.3-8.2) g/dL Albumin 4.3 (3.5-5.0) g/dL Influenza Type A (PCR) (Not Detectd) Influenza Type B (PCR) (Not Detectd) RSV (PCR) (Not Detectd) SARS-CoV-2 (PCR) (Not Detectd) 09/26/23 09/26/23 Range/Units 15:55 15:55 WBC (3.8-10.6) k/uL RBC (3.80-5.40) m/uL Hgb (11.4-16.0) gm/dL Hct (34.0-46.0) % MCV (80.0-100.0) fL MCH (25.0-35.0) pg MCHC (31.0-37.0) g/dL RDW (11.5-15.5) % Plt Count (150-450) k/uL MPV Neutrophils % % Lymphocytes % % Monocytes % % Eosinophils % % Basophils % % Neutrophils # (1.3-7.7) k/uL Lymphocytes # (1.0-4.8) k/uL Monocytes # (0-1.0) k/uL Eosinophils # (0-0.7) k/uL Basophils # (0-0.2) k/uL PT (10.0-12.5) sec INR (<1.2) APTT (22.0-30.0) sec Sodium (137-145) mmol/L Potassium (3.5-5.1) mmol/L Chloride (98-107) mmol/L Carbon Dioxide (22-30) mmol/L Anion Gap mmol/L BUN (7-17) mg/dL Creatinine (0.52-1.04) mg/dL Est GFR (CKD-EPI)AfAm (>60 ml/min/1.73 sqM) Est GFR (CKD-EPI)NonAf (>60 ml/min/1.73 sqM) Glucose (74-99) mg/dL Calcium (8.4-10.2) mg/dL Magnesium (1.6-2.3) mg/dL Total Bilirubin (0.2-1.3) mg/dL AST (14-36) U/L ALT (4-34) U/L Alkaline Phosphatase (38-126) U/L Troponin I <0.012 (0.000-0.034) ng/mL Total Protein (6.3-8.2) g/dL Albumin (3.5-5.0) g/dL Influenza Type A (PCR) Not Detected (Not Detectd) Influenza Type B (PCR) Not Detected (Not Detectd) RSV (PCR) Not Detected (Not Detectd) SARS-CoV-2 (PCR) Not Detected (Not Detectd) - Radiology Data Radiology results: report reviewed, image reviewed Disposition Clinical Impression: Compression fracture of L1 vertebra, Dizziness, Chest pain Disposition: HOME SELF-CARE Instructions (If sedation given, give patient instructions): Vertebral Compression Fracture (ED) Additional Instructions: Return to the emergency department with any new, worsening, or concerning symptoms. Take the prednisone daily for 5 days. You can take the Robaxin as 1- 2 tablets up to 3-4 times daily. The Flexeril you were sent home with from here is also a muscle relaxer, do not take this with the Robaxin, take one or the other. You can also apply the lidocaine patches daily. Contact orthopedics as listed below first thing Thursday morning. Let them know that you were seen in the emergency department and found to have a severe L1 compression fracture, and they should schedule you for a sooner follow-up appointment. Prescriptions: Lidocaine 5% Patch [Lidoderm 5% Patch] 1 patch TOPICAL DAILY PRN #30 patch PRN Reason: Pain predniSONE 50 mg PO DAILY 5 Days #5 tab methocarbamoL [Robaxin-750] 1,500 mg PO TID PRN #30 tab PRN Reason: Pain Is patient prescribed a controlled substance at d/c from ED?: No Referrals: Loly Reed MD [Primary Care Provider] - 1-2 days Elisa Salas DO [Doctor of Osteopathic Medicine] - 1-2 days
[2023-09-26 16:21] LABS: Basophils # (A) 0.1 k/uL (0-0.2); Basophils % (A) 1 %; Eosinophils # (A) 0.1 k/uL (0-0.7); Eosinophils % (A) 1 %; HCT 45.8 % (34.0-46.0); HGB 15.4 gm/dL (11.4-16.0); Lymphocytes # (A) 2.3 k/uL (1.0-4.8); Lymphocytes % (A) 23 %; MCH 31.9 pg (25.0-35.0); MCHC 33.6 g/dL (31.0-37.0); MCV 94.9 fL (80.0-100.0); Mean Platelet Volume 7.3; Monocytes # (A) 0.5 k/uL (0-1.0); Monocytes % (A) 5 %; Neutrophils # (A) 6.6 k/uL (1.3-7.7); Neutrophils % (A) 68 %; Platelet Count 266 k/uL (150-450); RBC 4.83 m/uL (3.80-5.40); RDW 12.8 % (11.5-15.5); WBC 9.8 k/uL (3.8-10.6)
[2023-09-26 16:26] LABS: Partial Thromboplastin Time 24.2 sec (22.0-30.0); Prothrombin Time 10.7 sec (10.0-12.5)
[2023-09-26 16:43] LABS: ALT 22 U/L (4-34); African American GFR (CKD) >90 (>60 ml/min/1.73 sqM); Albumin 4.3 g/dL (3.5-5.0); Anion Gap 10 mmol/L; Calcium 9.9 mg/dL (8.4-10.2); Carbon Dioxide 25 mmol/L (22-30); Chloride 104 mmol/L (98-107); Magnesium 1.8 mg/dL (1.6-2.3); Non-African American GFR(CKD) >90 (>60 ml/min/1.73 sqM); Potassium 4.5 mmol/L (3.5-5.1); Sodium 139 mmol/L (137-145); Total Bilirubin 0.5 mg/dL (0.2-1.3); Total Protein 7.3 g/dL (6.3-8.2)
--- NOTE | 2023-09-26 16:43 | CT ---
EXAMINATION TYPE: CT lumbar spine wo con DATE OF EXAM: 09/26/2023 4:20 PM COMPARISON: None HISTORY: Low back pain, unable to sit on tail bone. Possible L1 compression Fx. CT DLP: 1069.1 mGycm Automated exposure control for dose reduction was used. Unenhanced CT of the lumbar spine was performed. Bone and soft tissue window settings are submitted as well as coronal and sagittal reconstructions. Findings: There is a moderate to severe compression fracture of the superior endplate of L1 with retropulsion c ompromising the spinal canal approximately 30%. The remaining lumbar vertebral segments are normal in height and alignment. There is a probable chronic mild superior endplate compression fracture of T11 without retropulsion. The lumbar intervertebral disc spaces are well-maintained in height. No large lumbar disc herniations are seen in their is no spinal stenosis There is moderate facet arthropathy at the L3-4, L4-5 and L5-S1 levels in mild facet arthropathy at t he L2-3 level. Visualized sacrum and SI joints are normal. There is calcification abdominal aorta without evidence of aneurysm. IMPRESSION: Moderate to severe superior endplate compression fracture of L1 with retropulsion compromising approx imately 30% of the spinal canal. The remaining lumbar vertebral segments and disc spaces are intact.
--- NOTE | 2023-09-26 16:52 | XR ---
EXAMINATION TYPE: XR chest 2V DATE OF EXAM: 09/26/2023 COMPARISON: NONE HISTORY: Chest pain TECHNIQUE: Frontal and lateral views of the chest are obtained. FINDINGS: Heart is borderline enlarged. There is no pulmonary vascular congestion or interstitial edema. There is no airspace/consolidative density. There is no pleural effusion, pleural thickening or pneumothorax. The osseous structures are intact IMPRESSION: Borderline cardiomegaly without overt CHF or acute cardiopulmonary disease.
[2023-09-26] MEDS ORDERED: HYDROmorphone 0.5 MG/0.5 ML SYRINGE IVP STA (17:17)
[2023-09-26] MEDS ORDERED: LIDOCAINE 4% PATCH TOPICAL ONE (17:17)
[2023-09-26] MEDS ORDERED: CYCLOBENZAPRINE 10MG STARTER 3 TAB BTL PO STA (17:21)
[2023-09-26 17:42] LABS: AST 27 U/L (14-36); Alkaline Phosphatase 76 U/L (38-126); Blood Urea Nitrogen 9 mg/dL (7-17); Glucose 94 mg/dL (74-99)
[2023-09-26 17:59] VITALS: BP 146/102; PULSE 68; TEMP 97.8
== END 2023-09-26 17:52 | disposition home or self-care (01) ==
LOC: EC 15:07
DX: M48.56XA Collapsed vertebra, not elsewhere classified, lumbar region, initial encounter for fracture (principal); I10 Essential (primary) hypertension; E78.5 Hyperlipidemia, unspecified; M19.90 Unspecified osteoarthritis, unspecified site; E07.9 Disorder of thyroid, unspecified; F41.9 Anxiety disorder, unspecified; F32.A Depression, unspecified; Z79.890 Hormone replacement therapy; Z79.1 Long term (current) use of non-steroidal anti-inflammatories (NSAID); Z79.899 Other long term (current) drug therapy; Z91.09 Other allergy status, other than to drugs and biological substances; Z88.8 Allergy status to other drugs, medicaments and biological substances; F17.200 Nicotine dependence, unspecified, uncomplicated; Z20.822 Contact with and (suspected) exposure to COVID-19; X58.XXXA Exposure to other specified factors, initial encounter
CPT/HCPCS: 99285; 96374; 96375 ×2; 96361 ×2; 36415; 93005; 80053; 83735; 84484; 85025; 85610; 85730; 87636; 71046; 72131; 96376; J1100; J2360; J1170 ×2